=== PATIENT | male | born 1960 | race Caucasian/White ===

== ENCOUNTER 2016-10-09 22:48 | Emergency (ER) | payer MEDICARE ==
[~2016-10-09] VITALS: Ht 160 cm; Wt 72.7 kg
[~2016-10-09 22:48] MED LIST: HYDR-3343; LABE200T3; LISI40TA; OMEP20CA9
[2016-10-09] MEDS ORDERED: RANI150C PO (22:56)
[2016-10-09] MEDS ORDERED: HYDROcodone/APAP 10/325 MG TABLET ONE (23:09)
[2016-10-09] MEDS ORDERED: HYDROcodone/APAP 10/325 MG TABLET PO STA (23:10)
[2016-10-09 23:42] VITALS: BP 145/88
== END 2016-10-10 00:02 | disposition home or self-care (01) ==
LOC: ED 23:44
DX: M79.621 Pain in right upper arm (principal); K21.9 Gastro-esophageal reflux disease without esophagitis; I10 Essential (primary) hypertension; F17.210 Nicotine dependence, cigarettes, uncomplicated
CPT/HCPCS: 99283

== ENCOUNTER → 2016-10-14 | Outpatient (CLI) | payer MEDICARE ==
[~2016-10-14] MED LIST changes: +RANI150C PO
== END | disposition home or self-care (01) ==
LOC: CFH 07:20
PROVIDERS: ATTEND Specialist
DX: N28.1 Cyst of kidney, acquired (principal); K82.4 Cholesterolosis of gallbladder
CPT/HCPCS: 76700

== ENCOUNTER → 2019-08-01 | Outpatient (CLI) | payer MEDICARE ==
[~2019-08-01] MED LIST changes: +HYDR25TA6 PO; -LABE200T3; +LABE200T6 PO; -LISI40TA; +LISI40TA PO; +OMEP-110 PO; +OXYC5TAB3 PO
[2019-08-01 10:29] LABS: ALANINE AMINOTRANSFERASE 36 U/L (12-78); ALBUMIN 3.8 g/dL (3.4-5.0); ANION GAP 5 mmol/L (5-15); CALCIUM 8.8 mg/dL (8.5-10.1); CHLORIDE 105 mmol/L (98-107); CREATININE 0.79 mg/dL (0.7-1.3)
[2019-08-01 10:31] LABS: ALKALINE PHOSPHATASE 82 U/L (45-117); BILIRUBIN,TOTAL 0.6 mg/dL (0.2-1.0); TOTAL PROTEIN 7.6 g/dL (6.4-8.2)
== END | disposition home or self-care (01) ==
LOC: STAR 09:22
PROVIDERS: ATTEND Orthopaedic Surgery
DX: Z01.818 Encounter for other preprocedural examination (principal); M75.121 Complete rotator cuff tear or rupture of right shoulder, not specified as traumatic; I10 Essential (primary) hypertension; Z88.2 Allergy status to sulfonamides
CPT/HCPCS: 36415; 80053

== ENCOUNTER 2019-08-16 08:46 | Day surgery (SDC) | payer MEDICARE ==
[~2019-08-16] VITALS: Ht 162.6 cm; Wt 64.5 kg
[~2019-08-16 08:46] MED LIST changes: +AMLO-150 PO; +HYDR-3241 PO; +LIDOCAINE 1%-EPI 1:100K, 20ML ONE; +LOSA100T14 PO; +OMEP20TA62 PO; +ROSU10TA2 PO; +SPIR25TA5 PO
[2019-08-16] MEDS ORDERED: LACTATED RINGERS 1,000 ML IV SCH (09:29)
[2019-08-16] MEDS ORDERED: GABAPENTIN 300 MG CAPSULE PO ONE (09:30)
[2019-08-16] MEDS ORDERED: ACETAMINOPHEN 500 MG TABLET PO ONE (09:30)
[2019-08-16 09:38] VITALS: BP 144/90
[2019-08-16] MEDS ORDERED: FENTANYL PF 100 MCG/2ML ONE (11:47)
[2019-08-16] MEDS ORDERED: MIDAZOLAM 1 MG/ML, 2ML ONE (11:48)
[2019-08-16] MEDS ORDERED: CEFAZOLIN 1,000 MG ONE (12:22)
[2019-08-16] MEDS ORDERED: SUCCINYLCHOLINE 20 MG/ML, 10ML ONE (12:22)
[2019-08-16] MEDS ORDERED: ONDANSETRON 2MG/ML, 2ML ONE (12:22)
[2019-08-16] MEDS ORDERED: PROPOFOL 10 MG/ML, 20ML ONE (12:22)
[2019-08-16] MEDS ORDERED: DEXAMETHASONE 4 MG/ML, 1ML ONE (12:22)
[2019-08-16] MEDS ORDERED: FENTANYL PF 100 MCG/2ML IV PRN (13:00)
[2019-08-16] MEDS ORDERED: ACETAMINOPHEN 325 MG TABLET PO PRN (13:00)
[2019-08-16] MEDS ORDERED: HYDROmorphone 2 MG/ML, 1ML IVPush PRN (13:00)
[2019-08-16] MEDS ORDERED: ALBUTEROL SULFATE 2.5 MG/3 ML NPPB PRN (13:00)
[2019-08-16] MEDS ORDERED: PROMETHAZINE 25 MG/ML, 1ML IV PRN (13:00)
[2019-08-16] MEDS ORDERED: DIAZEPAM 5 MG/ML, 2ML IVPush PRN (13:00)
[2019-08-16] MEDS ORDERED: hydrALAzine 20 MG/ML, 1ML IV PRN (13:00)
[2019-08-16] MEDS ORDERED: MEPERIDINE/PF 25MG/0.5ML IVPush PRN (13:00)
[2019-08-16] MEDS ORDERED: KETOROLAC 30 MG/1 ML IV PRN (13:00)
[2019-08-16] MEDS ORDERED: OXYcodone 5 MG/5 ML ORAL.SOL UDC PO PRN (13:00)
[2019-08-16] MEDS ORDERED: LABETALOL 5MG/ML, 20ML IV PRN (13:00)
[2019-08-16] MEDS ORDERED: BUPIVACAINE/PF 0.5% ONE (13:54)
== END 2019-08-16 16:15 | disposition home or self-care (01) ==
LOC: OUT 08:46
PROVIDERS: ATTEND Orthopaedic Surgery
DX: S46.011A Strain of muscle(s) and tendon(s) of the rotator cuff of right shoulder, initial encounter (principal); S43.431A Superior glenoid labrum lesion of right shoulder, initial encounter; M75.41 Impingement syndrome of right shoulder; M19.011 Primary osteoarthritis, right shoulder; M65.811 Other synovitis and tenosynovitis, right shoulder; M75.51 Bursitis of right shoulder; E83.59 Other disorders of calcium metabolism; I10 Essential (primary) hypertension; E78.5 Hyperlipidemia, unspecified; Z79.899 Other long term (current) drug therapy; Z87.891 Personal history of nicotine dependence; Z88.2 Allergy status to sulfonamides; Z98.52 Vasectomy status; Z98.890 Other specified postprocedural states; Z82.61 Family history of arthritis; X58.XXXA Exposure to other specified factors, initial encounter; Y93.89 Activity, other specified; Y92.89 Other specified places as the place of occurrence of the external cause; Y99.8 Other external cause status
CPT/HCPCS: 29823; 29824; 29826; 29827; 64415; C1713; J0330; J0690; J1100; J2250; J2405; J2704; J3010; J3490; J7120

== ENCOUNTER 2020-07-14 01:16 | Emergency (ER) | payer MEDICARE ==
[~2020-07-14] VITALS: Ht 160 cm; Wt 75.0 kg
[~2020-07-14 01:16] MED LIST changes: -LIDOCAINE 1%-EPI 1:100K, 20ML ONE
--- NOTE | 2020-07-14 01:23 | NUR ---
BREAK RN: PT BIB [facility] FOR LOW BACK PAIN. PT HAS A HISTORY OF BACK SURGERY. PT WAS GIVEN FENTANYL HUC OB VIA [facility]. VS STABLE. NO ACUTE DISTRESS NOTED. CALL LIGHT IN PLACE. WILL CONTINUE TO MONITOR WHILE PRIMARY RNCATHY IS ON BREAK.
--- NOTE | 2020-07-14 01:45 | NUR ---
BREAK RN: REPORT GIVEN TO VERNON MORGAN
[2020-07-14] MEDS ORDERED: DIAZEPAM 5 MG TABLET ONE (01:54)
[2020-07-14] MEDS ORDERED: KETOROLAC 60 MG/2 ML ONE (01:54)
[2020-07-14] MEDS ORDERED: ACETAMINOPHEN 325 MG TABLET ONE (01:55)
[2020-07-14] MEDS ORDERED: KETOROLAC 30 MG/1 ML IM ONE (02:00)
[2020-07-14] MEDS ORDERED: DIAZEPAM 5 MG TABLET PO ONE (02:00)
[2020-07-14] MEDS ORDERED: ACETAMINOPHEN 325 MG TABLET PO ONE (02:00)
--- NOTE | 2020-07-14 02:05 | NUR ---
PT RESTING IN [facility], NO NEEDS AT THIS TIME
[2020-07-14 02:45] VITALS: BP 150/91
== END 2020-07-14 03:00 | disposition home or self-care (01) ==
LOC: ED 01:58
DX: S39.012A Strain of muscle, fascia and tendon of lower back, initial encounter (principal); I10 Essential (primary) hypertension; K21.9 Gastro-esophageal reflux disease without esophagitis; X58.XXXA Exposure to other specified factors, initial encounter; Y93.89 Activity, other specified; Y92.89 Other specified places as the place of occurrence of the external cause; Y99.8 Other external cause status
CPT/HCPCS: 96372; 99284; J1885; J7512